=== PATIENT | female | born 1980 | race Caucasian/White ===

== ENCOUNTER 2023-12-26 10:38 | Emergency (ER) | payer SELFPAY ==
[2023-12-26 10:54] VITALS: BP 146/100
[2023-12-26 11:16] VITALS: BMI 17.2
--- NOTE | 2023-12-26 12:34 | ED.GENMED ---
History of Present Illness
General
Chief Complaint: Musculo-Skeletal Complaint
Time Seen by Provider: 12/26/23 11:33
Travel History
Have you had any contact with someone who has COVID-19?: No
Do you have any symptoms of coronavirus? Fever > 100 degrees, chills, cough, shortness of breath, sore throat, loss of taste or smell, muscle aches, or headache?: No
History of Present Illness
History of Present Illness:
43-year-old female presents to the emergency department for evaluation of persistent ankle pain for the past 9 months after an injury. She did not seek medical evaluation after injuring the ankle. Has had frequent bouts of swelling but over the
past 2 weeks noted that the pain worsened and swelling increased after long bouts of walking or standing. Has not taken any medication for pain control.
Review of Systems
Review of Systems
Allergies reviewed?: Yes
All Other Systems: ROS reviewed and negative except as documented in HPI and ROS
Phy Exam
Physical Exam
Physical Exam:
GEN: Well appearing, NAD, WDWN
HEENT: Oral mucosa moist, no scleral icterus
Cardiac: Regular rate
Lung: No respiratory distress, no tachypnea
MSK: Mild swelling of the right inferior ankle superior to the calcaneus, tenderness to the distal Achilles tendon insertion, no pain with passive range of motion
Skin: Good color, no pallor or jaundice, no rashes
Neuro: AO x3, moves all extremities freely
Psych: Calm, cooperative
Course
Orders/Labs/Results
Orders:
Orders
12/26/23 10:57
Ankle, Right 3 view CR [CR Ankle - Right Min 3 Views *] Urgent
Comment:
Reason For Exam: previous injury, swelling, pain
Foot, Right 3 View [CR Foot - Right Min 3 Views] Urgent
Comment:
Reason For Exam: swelling pain, previous injury
Vital Signs
Initial and Last Documented VS:
Initial Vital Signs
Temp Pulse Resp BP Pulse Ox
98.8 F 104 22 146/100 99
12/26/23 10:54 12/26/23 10:54 12/26/23 10:54 12/26/23 10:54 12/26/23 10:54
Last Documented Vital Signs
Temp Pulse Resp BP Pulse Ox
98.8 F 104 22 146/100 99
12/26/23 10:54 12/26/23 10:54 12/26/23 10:54 12/26/23 10:54 12/26/23 10:54
MDM/Problems Addressed
MDM/Problems Addressed:
Likely persistent Achilles tendinitis, provided with orthopedic boot for immobilization and NSAIDs, recommend outpatient orthopedic follow-up
*Critical Care Note
Total Time (30-74mins, 75-104mins- exclusive of procedures): Not Applicable
ED Attending Note
-
Portions of this chart may have been created with voice recognition software.� Occasional wrong word or��sound alike� substitutions may have occurred due to the inherent limitations of voice recognition software.
Discharge Plan
Departure
Patient Disposition: Home (Routine Discharge)
Date of Disposition: 12/26/23
Time of Disposition: 12:35
Patient with high blood pressure during this ER visit?: No
Discharge Problem:
Achilles tendinitis, right leg
Instructions: Achilles Tendinopathy Exercises
Prescriptions:
New
diclofenac sodium 75 mg tablet,delayed release (DR/EC)
75 mg PO BID 14 Days Qty: 28 0RF
Referrals:
NONE,* [Family Provider] -
Ronald Gerber DPM [Active] -
Interventions
Interventions:
*Risk Screen - Suicide Last Done: 12/26/23 10:54
*General Assessment Last Done: 12/26/23 10:54
*Neglect/Abuse Screening Last Done: 12/26/23 10:54
ED- Fall Risk Assessment Last Done: 12/26/23 11:17
*ED COVID-19 Vaccine History Last Done: 12/26/23 11:16
*Nursing Disposition Last Done: 12/26/23 12:46
ED-Musculoskeletal Assessment Last Done: 12/26/23 11:17
Discharge Date and Time
Discharge Date/Time: 12/26/23 12:47
Print Language: SLOVENIAN
== END 2023-12-26 12:47 | disposition home or self-care (01) ==
LOC: EMR 10:38
PROVIDERS: EMERGENCY PHYSICIAN Emergency Medicine
DX: M76.61 Achilles tendinitis, right leg (principal)
CPT/HCPCS: 99283; 29515; 73610; 73630